=== PATIENT | female | born 1955 | race Caucasian/White ===

== ENCOUNTER 2021-11-30 14:30 | Outpatient (RCR) | payer MEDICARE, OTHER, SELFPAY ==
--- NOTE | 2021-10-14 11:53 | PTOPEVAL ---
INITIAL PHYSICAL THERAPY EVALUATION and PLAN OF CARE Thank you for referring Cece Malin to [facility] [place] [facility] [place] Rita is scheduled to be seen for physical therapy? 2x/week for 4 weeks. Please review, sign, date and return this plan of care DORA. I agree with and certify that the following plan of care is medically necessary. Referring Physician Date Admitting Provider: Attending Provider: Chris Smith, Referring Provider: *PT Outpatient Evaluation Start: 10/14/21 10:19 Freq: Status: Active Protocol: Document 10/14/21 10:19 MCKENNA (Rec: 10/14/21 11:52 MCKENNA [id number]) Therapy Assessment Status Assessment Status Assessment Status Evaluation Outpatient Past Medical History Past Medical History Source of Past Medical History Patient Cardiovascular History Hx Hypercholesterolemia Yes Hx Hypertension Yes Gastrointestinal History Hx Gastroesophageal Reflux Disease Yes Musculoskeletal History Hx Orthopedic Surgery Yes: 2017 R shoulder ?RTC Other History Hx Other Medical Conditions Yes: 2019 hospitalized with septicemia, septic shock, pneumonia Evaluation Information Problem Diagnosis Low Back Pain Onset 1999 - worsening Subjective Information in 1999 - tried to help Query Text:As Reported By Patient/ - lift a car - went to Family the ground - bulging disc - gradually worsening. Initially - had bilat leg pain . Leg pain - anterior, lateral thighs, anterior and posterior lower leg pain - goes into her feet. Difficulty getting out of bed in the mornings. Amitriptyline and 2 Benadryl to help sleep at night. Pain can awaken her out of sleep, however. Mornings always rough - sometimes the discomfort will ease up, other times it doesn't. When she was working - at [employer] - felt better with walking around. Now that she isn't working - increase in discomfort, doesn't feel as good. Prior Level of Function Activity Level (Last 3 Months) Occupation retired - [employer] Left Medications Home Meds (Include: OTC, RX, Vitamins, amitriptyline, lisinopril -
--- NOTE | 2021-11-07 12:45 | PEDREH ---
I agree with and certify that the above recommended change(s) to the plan of care are medically necessary. ? Referring Physician?Date Admitting Provider: Attending Provider: Chris Smith, Referring Provider: 11/07/21 PHYSICAL THERAPY PROGRESS REPORT Cece Malin has completed a total number of 7 treatment sessions since initial evaluation was completed. Summary of Progress: Cece states that she continues to have pain stating that it is 7-8/10 at the worst. She states that she also has difficulty squatting down to get into bottom cabinets. She continues to demonstrate significant LE ROM and strength deficits as well as trunk ROM deficits limiting her functional mobility. Recommendations: Cece would continue to benefit from skilled PT to address these deficits and assist her in improving her functional mobility. Thank you for referring Cece Malin to [facility].? The patient is scheduled to be seen for therapy? 2x/week for 3 weeks.? Please review, sign, date and return this plan of care DORA.
--- NOTE | 2021-11-24 10:08 | PCPTNOTE ---
Pt called and cancelled appointment for this date due to having a headache.
--- NOTE | 2022-01-26 11:33 | PCPTNOTE ---
Admitting Provider: Attending Provider: Chris Smith, Patient:Cece Malin Date of :1955 Patient has not returned for any further treatments since 11/30/2021, therefore she will be discharged at this time. Patient?s initial visit was on 10/14/2021 and she has been seen for 11 PT visits. The goals have been partially met. Thank you for referring this patient to [facility]. Please review, sign, date and return this discharge summary DORA. I have been updated about the patient's current status and I agree with discharge from the above service at this time. Referring Physician Date
== END 2022-01-04 10:54 | disposition home or self-care (01) ==
LOC: ANHHIPT 14:30
PROVIDERS: PCP Internal Medicine; Visit Provider Internal Medicine
DX: M54.50 Low back pain, unspecified (principal)
CPT/HCPCS: 97110; 97140; 97162; 97530

== ENCOUNTER 2024-03-17 10:30 | Outpatient (RCR) | payer MEDICARE, OTHER, MEDICAID, SELFPAY ==
--- NOTE | 2023-12-19 16:01 | PTOPEVAL1 ---
Assessment and note entered by Michelle Liu, PT Evaluation Information Assessment Status Evaluation Diagnosis pain in unspecified foot, pain in bilat foot/ankle stiffness in bilat foot/ankles Onset at least a year Subjective Information Pt reports both feet hurt, bottom of feet, sides, and top but will move around. States foot will swell when it flares up. States feet will burn and hurt. States will wake her up hurting and will go up the leg as well. Wonder's if is neuropathy. Reports will run her legs and this helps but as she lays down will return. States wlil cause her legs to jerk. States with movin certain ways will cause a cramp and moving another way will help the discomfort. Will try to stand on it but can't because it hurts so bad. Has had testing in the past related to blood clots . Only time feet feel good is when first wakes up in the morning before the feet hit the floor Reports during the day will sit a lot. wears hre house shoes, doesn't wear tennis shoes because feet are usually a little swollen. In Summer wears flip-flops Has done therapy for this problem in 2021. Reported Pain Level Pain Score 3,1: Self Report Assessment PT Clinical Summary Pt presents with c/o bilat foot pain that has persisted at least a year . Reports pain is like a cramping, and will travel up her legs at times. States Best time is when first wakes up in the morning before her feet touch the floor. She also appears to have circulation deficits in feet. Pt demo's decreased dorsiflexion both with knees bent and straight, adhesions and tightness in gastroc complex, stiffness in ankle/foot complex, and poor ankle/foot alignment in standing. Pt will greatly benefit from physical therapy in order to provide education on appropriate foot alignment and shoe treviño, address soft tissue issues and flexibility, and decreased pain to improve function. Plan of Care Interventions Electrical Stimulation,Hot Pack/Cold Pack,Manual Therapy,Neuro Re-education,Paraffin Bath,Patient/ Caregiver Educati,Therapeutic Activities, Therapeutic Exercise,Ultrasound Other Interventions Taping
--- NOTE | 2023-12-19 16:02 | OPREHPOC ---
Outpatient Therapy Plan of Care This is a Multidisciplinary Plan of Care that may contain components documented by all disciplines (PT, OT, and ST.) PT Problem 1 PT Problem #1 Knowledge Deficit PT Goal 1 Goal Pt will be independent in HEP Pt will verbalize understanding of diagnosis and prognosis Target Visit 8 PT Problem 2 PT Problem #2 Impaired Flexibility PT Goal 1 Goal Pt will demo improved flexibility in bilat gastrocs with increased dorsiflexion with knee extension Target Visit 8 PT Problem 3 PT Problem #3 Impaired Range of Motion PT Goal 1 Goal Pt will demo active ROM dorsiflexion with knees bent and straight of 15 degrees or greater Target Visit 16 PT Problem 4 PT Problem #4 Pain PT Goal 1 Goal Pt will report greatest pain level at 3/10 or less to improve ADLs and activities Target Visit 8 PT Goal 2 Goal Pt will report resolution of pain. Target Visit 16
--- NOTE | 2024-01-11 14:11 | PCPTNOTE ---
Patient called & cancelled scheduled appointment this date due to inclimate weather. Will continue therapy at next scheduled appointment.
--- NOTE | 2024-01-24 10:46 | PTOPPROG ---
Assessment and note entered by Michelle Liu, PT Assessment Status Progress Report Diagnosis pain in unspecified foot pain in bilat foot/ankle stiffness in bilat foot/ankle Onset at least a year Subjective Information Pt reports thinks therapy is helping some. States thinks the taping may have helped her right foot also. noticing when walking in the house shoes to lift right foot up to take a step. Noted with lifting with shoes was not painful Also reports episodes of cramping have decreased at home especially. Also notes hasn't been woken up at night with the pain. Legs hurt all the time but this was a separate issue than feet. Reports right foot/ankle swelling has improved and notes also the tenderness in front and back of lower legs has improved also since starting therapy. Has days now where when wakes up and her feet feel good, and this was not the case prior to therapy Self Perceived improvement: 30% overall. Assessment PT Clinical Summary Pt has attended therapy consistently for bilat foot and lower leg pain. Does report improvement overall, demkarina's improved tolerance to foot positions such as composite toe flexion, improved ROM especially of dorsiflexion and reports she has significantly less episodes that wake her at night. She reports she has had days upon waking her feet felt good. She has yet to plateau in therapy, and cont to demo decreased flexibility and high reports of pain at times. Pt feels that therapy is helping as well. Pt will benefit from continued therapy to continue improving range, tolerance to exercise, soft tissue tone and extensibility, and decrease pain for improved function. Plan of Care Interventions Electrical Stimulation,Hot Pack/Cold Pack,Manual Therapy,Neuro Re-education,Paraffin Bath,Patient/ Caregiver Educati,Therapeutic Activities, Therapeutic Exercise,Ultrasound Other Interventions Taping PT Services Indicated No
--- NOTE | 2024-03-05 16:33 | PTOPPROG ---
Assessment and note entered by Michelle Liu, PT Assessment Status Progress Report Diagnosis pain in unspecified foot pain in bilat foot/ankle Stiffness in bilat foot/ankle Onset at least a year Subjective Information Self-perceived improvement: 40-45% Has good days and bad days. Pt reports therapy is helping. States is having less pain, and her lower legs feels cell tower climber , doesn't feel like concrete . Feels like gotta little bit of spring in my legs and feet . Doesn't feel like will ever be 100 % but feels like we're making progress. Stairs have been easier sometimes. Feet felt cell tower climber and for an instant had no pain. Reports has high levels of pain less often. Notes having a sharp pain on right heel recently. Assessment PT Clinical Summary Pt has attended therapy consistently for her bilat foot pain. She demo's slow improvement objectively, demonstrating ability to perform a few single leg heel raises today. While patient continues to report subjective improvement, her LEFS suggests otherwise today compared to last LEFS score. Also demo's slow improvements in range to more normative values. Pt will benefit from continued therapy to continue functional improvements, possibly with addition of iontophoresis or phonophoresis for addition of anti-inflammatory to irritated tissues Plan of Care Interventions Electrical Stimulation,Hot Pack/Cold Pack,Manual Therapy,Neuro Re-education,Paraffin Bath,Patient/ Caregiver Educati,Therapeutic Activities, Therapeutic Exercise,Ultrasound,Other Other Interventions Iontophoresis, phonophoresis PT Services Indicated Yes Treatment Frequency and 1-2x weekly x 10 visits Duration These treatments will address the objective and functional deficits as defined above. The patient will be advanced safely and appropriately in order for the patient to progress towards his/her prior level of function. Additional exercises will be introduced and as well as a comprehensive home exercise program upon discharge, if needed, ?to ensure carryover of functional gains achieved in the clinic. This treatment plan has been reviewed and agreement upon by the patient.
--- NOTE | 2024-03-19 16:35 | PCPTNOTE ---
This treatment is being continued on visit number [id number]. Please see documentation on both accounts to view progress. Completed interventions, outcomes, and problems have been marked as Inactive to facilitate the copying of the Care plan routine for recurring accounts.
== END 2024-03-18 23:59 | disposition home or self-care (01) ==
LOC: ANHHIPT 10:30
PROVIDERS: PCP Family Medicine; Visit Provider Family Medicine
DX: M25.572 Pain in left ankle and joints of left foot (principal); M25.571 Pain in right ankle and joints of right foot; M25.672 Stiffness of left ankle, not elsewhere classified; M25.671 Stiffness of right ankle, not elsewhere classified
CPT/HCPCS: 97014; 97035; 97110; 97140; 97161; 97750; G0283

== ENCOUNTER 2024-06-09 14:00 | Outpatient (RCR) | payer MEDICARE, OTHER, SELFPAY ==
--- NOTE | 2024-03-19 16:36 | PCPTNOTE ---
The treatment documented on this account is a continuation of the treatment documented on visit number [id number]. Please see documentation on both accounts to view progress. The Plan of Care has been transitioned and updated within the new V#. I have addressed and agree with the discipline specific Problems, Interventions, and Goals for the current certification period. Completed interventions, outcomes, and problems have been marked as Inactive to facilitate the copying of the Care plan routine for recurring accounts.
--- NOTE | 2024-03-21 15:05 | PCPTNOTE ---
Rehab Department called & cancelled scheduled appointment this date due to staffing shortage
--- NOTE | 2024-04-25 17:05 | PTOPPROG ---
Assessment and note entered by Michelle Liu, PT Assessment Status Progress Diagnosis pain in unspecified foot Onset at least a year Subjective Information Self-perceived improvement: 60-65% Doesn't feel like will ever be 100% Feels that she is making progress. Does not know how she will do without being in therapy. States has good days and bad days but the bad days are fewer than previously. Notes will get really tired but not sleepy. States left foot tried cramping up last night too. Assessment PT Clinical Summary Pt has attended therapy consistently for dora foot pain. Cont to rate pain at moderate to severe however states she has less days of severe pain. She also reports significantly less cramping episodes, demos functional ROM, and improved plantar flexion strength. Is tolerating deeper pressures in STM, and increasing exercises and intensity. Pt does appear self-limiting with muscle fatigue and discomfort however is continuing to progress slowly through her plan. Pt will benefit from continued therapy focusing on independent progression and maintenance after completion of therapy services. Plan of Care Interventions Therapeutic Exercise,Other,Ultrasound,Patient/ Caregiver Educati,Manual Therapy,Paraffin Bath, Neuro Re-education,Therapeutic Activities,Hot Pack /Cold Pack,Electrical Stimulation Other Interventions Iontophoresis, phonophoresis PT Services Indicated Yes Treatment Frequency and 1x weekly x 6 weeks Duration These treatments will address the objective and functional deficits as defined above. The patient will be advanced safely and appropriately in order for the patient to progress towards his/her prior level of function. Additional exercises will be introduced and as well as a comprehensive home exercise program upon discharge, if needed, ?to ensure carryover of functional gains achieved in the clinic. This treatment plan has been reviewed and agreement upon by the patient.
--- NOTE | 2024-06-16 14:53 | PCPTNOTE ---
Pt arrived 30 minutes late for appointment. Pt was rescheduled to a later date
== END 2024-06-23 10:50 | disposition still patient (30) ==
LOC: ANHHIPT 14:00
PROVIDERS: PCP Family Medicine; Visit Provider Family Medicine
DX: M79.673 Pain in unspecified foot (principal)
CPT/HCPCS: 97014; 97032; 97035; 97110; 97140; 97750; G0283

== ENCOUNTER 2024-07-07 14:15 | Outpatient (RCR) | payer MEDICARE, OTHER, SELFPAY ==
--- NOTE | 2024-07-07 16:00 | PTOPDC ---
Assessment and note entered by Michelle Liu, PT Evaluation Information Assessment Status Discharge Diagnosis pain in unspecified foot Onset at least a year Subjective Information Pt states feels 60-70% improved overall. States is tired after vacation. Did a lot of walking, went to flea markets and shopping. Did ok with this, just had to stop and rest some and slow down but then kept going. Wore her flip flops the whole time, but took her tennis shoes just in case. did some running and stretching of the feet while was on vacation. last night got left calf pain Reported Pain Level Pain Score 5,1: Self Report Additional Pain Score Comments They both swell and this causes discomfort. Assessment PT Clinical Summary Pt has attended therapy consistently for a significant amount of time for her dora foot pain. She noted initially she would not give up wearing her slippers and flip-flop non-supportive shoe treviño but has since improved in earing her supportive shoes more consistently though as fully as directed. Pt pain ranges have decreased significantly both in max and min numbers ranging from 1-4/10 on left foot and 1-6/10 on right foot. She cont to have cramping in LEs but not as frequently. She shows overall improved tolerance to exercises and strengthening as well. Thus patient is being discharged for meeting max benefit of therapy at this time. Plan of Care PT Services Indicated No
== END 2024-07-10 11:01 | disposition home or self-care (01) ==
LOC: ANHHIPT 14:15
PROVIDERS: PCP Nurse Practitioner Family; Visit Provider Nurse Practitioner Family
DX: M79.673 Pain in unspecified foot (principal)
CPT/HCPCS: 97110; 97140; 97750